=== PATIENT | male | born 1990 | race Caucasian/White ===

== ENCOUNTER 2020-03-16 19:21 | Emergency (ER) | payer MEDICAID ==
[~2020-03-16] VITALS: Ht 170.2 cm; Wt 75.0 kg
[~2020-03-16 19:21] MED LIST: NO HOME MEDS
[2020-03-16 19:27] VITALS: BP 152/100
--- NOTE | 2020-03-16 19:53 | NUR ---
dr. vann at bedside assessing patient
[2020-03-16] MEDS ORDERED: LIDOcaine 1% W/epiNEPHrine 1:100,000 20ml vial SQ ONE (19:55)
[2020-03-16] MEDS ORDERED: acetaminophen 325mg tablet PO ONE (22:10)
== END 2020-03-16 22:16 ==
LOC: ER 19:22
DX: S51.812A Laceration without foreign body of left forearm, initial encounter (principal); F15.10 Other stimulant abuse, uncomplicated; F17.200 Nicotine dependence, unspecified, uncomplicated; F11.90 Opioid use, unspecified, uncomplicated; Z98.890 Other specified postprocedural states; Y93.89 Activity, other specified; Y92.89 Other specified places as the place of occurrence of the external cause; Y99.8 Other external cause status
CPT/HCPCS: 12004; 99283